=== PATIENT | female | born 1950 | race Caucasian/White ===

== ENCOUNTER 2018-08-22 23:22 | Emergency (ER) | payer OTHER, MEDICAID ==
[~2018-08-22] VITALS: Ht 165.1 cm; Wt 98.2 kg
[2018-08-22 23:38] LABS: GLUCOSE,POINT OF CARE 132 MG/DL (70-110)
[2018-08-22] MEDS ORDERED: METF-960 PO (23:38)
[2018-08-22] MEDS ORDERED: UNK HTN MED PO (23:38)
[2018-08-22] MEDS ORDERED: [UNRECOGNIZED DRUG - REMARK] SQ (23:38)
[2018-08-22] MEDS ORDERED: UNK CHOLESTEROL MED PO (23:38)
[2018-08-23 01:45] VITALS: BP 147/82
[2018-08-23] MEDS ORDERED: HYDROCODONE/ACETAMINOPHEN 5-325 MG TABLET PO ONE (01:45)
== END 2018-08-23 02:21 | disposition home or self-care (01) ==
LOC: EMS 23:24
DX: M25.562 Pain in left knee (principal); E11.9 Type 2 diabetes mellitus without complications; E78.00 Pure hypercholesterolemia, unspecified; I10 Essential (primary) hypertension; Z79.84 Long term (current) use of oral hypoglycemic drugs; Z79.4 Long term (current) use of insulin; Z88.6 Allergy status to analgesic agent
CPT/HCPCS: 29505; 29530